=== PATIENT | male | born 1950 | race Caucasian/White ===

== ENCOUNTER 2025-05-19 06:31 | Emergency (ER) | payer MEDICARE ==
[~2025-05-19] VITALS: Ht 170.2 cm; Wt 81.4 kg
[2025-05-19 07:07] LABS: PLATELET COUNT, AUTOMATED 189 10^3/uL (150-450)
[2025-05-19 07:28] LABS: INR 1.25
[2025-05-19 07:38] LABS: CALCIUM LEVEL 8.7 MG/DL (8.3-10.6); CARBON DIOXIDE LEVEL 26 MMOL/L (20-31); CHLORIDE LEVEL 107 MMOL/L (98-107); CREATININE FOR GFR 0.90 MG/DL (0.70-1.30); GLOMERULAR FILTRATION RATE > 90.0 (>42); POTASSIUM SERUM 4.5 MMOL/L (3.5-5.1); SODIUM LEVEL 143 MMOL/L (136-145)
[2025-05-19] MEDS: SILVER NITRATE APPLICATOR (1 = QTY 10) TOP ONE (07:55)
[2025-05-19 08:31] VITALS: O2SAT 94
[2025-05-19 08:36] VITALS: BP 156/74; TEMP 96.9
== END 2025-05-19 09:02 | disposition home or self-care (01) ==
LOC: M ED 06:31 → EDBD 06:31 → M ED 09:02
DX: I83.891 Varicose veins of right lower extremity with other complications (principal); E78.5 Hyperlipidemia, unspecified; Z86.718 Personal history of other venous thrombosis and embolism; Z88.8 Allergy status to other drugs, medicaments and biological substances